=== PATIENT | female | born 1950 | race Caucasian/White ===

== ENCOUNTER 2016-10-22 11:41 | Emergency (ER) | payer MEDICARE, OTHER ==
[2016-10-22 11:51] VITALS: TEMP 97.7; BMI 30.4
[2016-10-22] MEDS ORDERED: Albuterol/Ipratropium Neb 3 ML NEB NEB ONE (12:02)
[2016-10-22 12:18] LABS: AUTOMATED BASOPHIL 0.9 % (0-2); AUTOMATED EOSINOPHIL 5.3 % (0-5); AUTOMATED LYMPH 22.6 % (17-44); AUTOMATED MONOCYTE 6.5 % (3-10); AUTOMATED NEUTROPHIL 64.7 % (45-76); MPV 7.6 fL (7.4-10.4)
[2016-10-22 12:26] LABS: ABG Draw Site Left Radial; ALLEN'S TEST PASS; BEb 6.9 (+/- 2)
[2016-10-22 12:30] LABS: PARTIAL THROMB. TIME 25.5 SEC (22-35)
[2016-10-22 12:36] LABS: BLOOD UREA NITROGEN 9 MG/DL (7-17); CALCIUM 9.5 MG/DL (8.4-10.2); CALCULATED OSMOLALITY 268 MOs/Kg (270-290); CHLORIDE 99 mEq/L (98-107); GLUCOSE 116 mg/dL (70-99); SODIUM LEVEL 139 mEq/L (137-146); TOTAL PROTEIN 7.7 G/DL (6.3-8.2)
[2016-10-22 13:27] LABS: LEUKOCYTES/URINE TRACE (NEGATIVE); NITRITE/URINE NEG (NEGATIVE); URINE OCCULT BLOOD NEG (NEG/TRACE); WBC/URINE 0-2 (0-5)
[2016-10-22] MEDS ORDERED: ONDANSETRON HCL 4 MG/2 ML VIAL IV ONE (13:28)
--- NOTE | 2016-10-22 13:28 | DIRPT ---
CLINICAL DATA: Shortness of breath, chest pain EXAM: CHEST 2 VIEW COMPARISON: CT chest 05/24/2016 FINDINGS: The lungs are hyperinflated likely secondary to COPD. There is no focal parenchymal opacity. There is no pleural effusion or pneumothorax. The heart and mediastinal contours are unremarkable. The osseous structures are unremarkable. IMPRESSION: No active cardiopulmonary disease. Electronically Signed By: Valentine Vaca On: 10/22/2016 13:26
[2016-10-22] MEDS ORDERED: METHYLPREDNISOLONE 125 MG/2 ML VIAL IV ONE (13:30)
[2016-10-22] MEDS ORDERED: HYDROmorphone 1 MG INJECTION IV ONE (13:38)
[2016-10-22] MEDS ORDERED: ALBUTEROL 6.7 GM MDI INH ONE (14:00)
--- NOTE | 2016-10-22 14:00 | EDPRACDOC ---
- General Information Chief Complaint: Chest Pain Stated Complaint: CHEST PAIN Time Seen by Provider: 10/22/16 12:06 Information Source: Patient Mode of Arrival: Car Home Medications: Home Medications Ropinirole HCl [Requip] 2 mg PO BID 10/21/15 Trazodone HCl [Desyrel] 50 mg PO QHS 10/21/15 Amoxicillin Trihydrate [Amoxicillin] 500 mg PO TID #30 tab 10/22/16 Fluoxetine HCl 20 mg PO DAILY 10/22/16 HYDROmorphone [Dilaudid] 4 mg PO .5XDAILY PRN 10/22/16 Methocarbamol 500 mg PO QID PRN 10/22/16 Ondansetron [Zofran Odt] 4 mg PO Q6H PRN #10 tab.rapdis 10/22/16 Prednisone [Deltasone, Orasone] 10 mg PO DAILY #39 tablet 10/22/16 Allergies/Adverse Reactions: Allergies Allergy/AdvReac Type Severity Reaction Status Date / Time morphine Allergy Confusion Verified 10/22/16 11:48 promethazine HCl Allergy See Verified 10/22/16 11:48 [From Phenergan] Comments - 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 Nitro SL x 2 did not help. Last stress test 2014 NEG ( per pt), and last check up with cardiology 2015 ok. Breast reduction surgery 3 weeks ago. Med hx = bronchitis/COPD Chest Pain Location: Reports: Substernal, Right Chest, Left Chest Pain Radiation: Reports: Arm (L), Arm (R) Symptoms Occur: Reports: Suddenly, At Rest Cardiac Risk Factors: Reports: Smoker (ex) Cardiac History of: Reports: Similar Pain in Past, Stress Test PE Risk Factors: Reports: Recent Trauma/Surgery. Denies: Estrogen Use Medications within 24 Hours: Reports: None, Nitro Prehospital Care: Reports: SL NTG Pain Came On: Reports: Suddenly Pain Status: Present Now Pain Description: Reports: Pressure Pain Severity: Mild Pain Worsens With: Reports: Nothing Pain Improves With: Reports: Nothing Associated Signs and Symptoms: Reports: SOB, Nausea ED Past Medical History - History Reviewed Yes Nurses notes reviewed and agree except as marked - Patient Medical History Psychological History: Reports: Depression - Social Medical History Smoking Status: Former smoker EDM Review of Systems - Review of Systems ROS Negative Except as Marked: Yes All systems reviewed and were negative except as marked Respiratory: Shortness of Breath Cardiovascular: Chest Pain - Physical Exam Constitutional: No apparent distress, Alert Oriented to: Time, Person, Place Last recorded Vital Signs: Last Vital Signs Temp 97.7 F 10/22/16 11:49 Pulse 69 10/22/16 13:16 Resp 16 10/22/16 13:16 BP 156/75 10/22/16 13:16 Pulse Ox 94 10/22/16 13:16 Oxygen Pulse Oxygen Saturation 94 O2 Device Nasal Cannula Oxygen Flow Rate 2 Fraction of Inspired Oxygen ( FIO2) - HEENT Head: Normal Eye Exam: negative: Conjunctival Injection, Scleral Icterus Oropharynx: negative: Drooling TMJ: Normal Nose: No Symptoms Reported Neck: Normal - Respiratory/Cardiovascular Respiratory: Normal - CTA Cardiovascular: Normal - GI Tenderness: Non tender - Musculoskeletal Back: Normal Extremities: Normal - Integumentary Skin: Normal - Neurologic Mood Description: Normal Thought: Coherent Perception: Normal ED Chest Pain Exam - Respiratory/Cardiovascular Respiratory: Normal - CTA Cardiovascular/Chest: Normal Radial Pulse: Normal Pedal Pulse: Normal Edema: negative: 1+, 2+, 3+, 4+, 5, 6 Chest Palpation: Normal - Action ASA given in the ED: No - Results 10/22/16 11:55 10/22/16 11:55 WBC 8.0 xk/uL (3.8-10.8) 10/22/16 11:55 RBC 4.61 xM/uL (4.20-5.40) 10/22/16 11:55 Hgb 13.6 g/dL (12.0-16.0) 10/22/16 11:55 Hct 40.8 % (36-47) 10/22/16 11:55 MCV 88 fL (81-99) 10/22/16 11:55 MCH 29.5 pg (27-32) 10/22/16 11:55 MCHC 33.4 g/dl (33-36) 10/22/16 11:55 RDW 13.2 % (11.5-14.5) 10/22/16 11:55 Plt Count 377 xk/uL (130-400) 10/22/16 11:55 MPV 7.6 fL (7.4-10.4) 10/22/16 11:55 Neut % (Auto) 64.7 % (45-76) 10/22/16 11:55 Lymph % (Auto) 22.6 % (17-44) 10/22/16 11:55 Webb % (Auto) 6.5 % (3-10) 10/22/16 11:55 Eos % (Auto) 5.3 % (0-5) H 10/22/16 11:55 Baso % (Auto) 0.9 % (0-2) 10/22/16 11:55 Absolute Neuts (auto) 5.12 xk/uL (1.7-8.2) 10/22/16 11:55 Absolute Lymphs (auto) 1.76 xk/uL (0.65-4.75) 10/22/16 11:55 PT 10.7 SEC (9.2-11.2) 10/22/16 11:55 INR 1.0 10/22/16 11:55 APTT 25.5 SEC (22-35) 10/22/16 11:55 D-Dimer Quant (PE/DVT) 1028 ng/mL (<500) H 10/22/16 11:55 Puncture Site Left radial 10/22/16 12:20 pH 7.430 pH UNITS (7.35-7.45) 10/22/16 12:20 pCO2 49.0 mmHg (35-45) H 10/22/16 12:20 pO2 58.0 mmHg (80-100) L 10/22/16 12:20 HCO3 32.5 MMOL/L (22-26) H 10/22/16 12:20 Total CO2 34.0 MMOL/L (23-27) H 10/22/16 12:20 Base Excess 6.9 (+/- 2) H 10/22/16 12:20 FiO2 % 21% 10/22/16 12:20 Specimen Drawn By Kasgl 10/22/16 12:20 Sodium 139 mEq/L (137-146) 10/22/16 11:55 Potassium 4.3 mEq/L (3.5-5.1) 10/22/16 11:55 Chloride 99 mEq/L (98-107) 10/22/16 11:55 Carbon Dioxide 30 mMOL/L (22-33) 10/22/16 11:55 Anion Gap 14 mEq/L (8-16) 10/22/16 11:55 BUN 9 MG/DL (7-17) 10/22/16 11:55 Creatinine 0.60 MG/DL (0.52-1.04) 10/22/16 11:55 Estimated GFR (MDRD) > 60 mL/min (>=60) 10/22/16 11:55 Glucose 116 mg/dL (70-99) H 10/22/16 11:55 Calculated Osmolality 268 MOs/Kg (270-290) L 10/22/16 11:55 Calcium 9.5 MG/DL (8.4-10.2) 10/22/16 11:55 Total Bilirubin 0.6 MG/DL (0.2-1.3) 10/22/16 11:55 AST 26 IU/L (14-36) 10/22/16 11:55 ALT 27 IU/L (9-52) 10/22/16 11:55 Alkaline Phosphatase 102 IU/L (55-165) 10/22/16 11:55 Troponin I < 0.01 ng/mL (<.04) 10/22/16 11:55 Total Protein 7.7 G/DL (6.3-8.2) 10/22/16 11:55 Albumin 4.2 G/DL (3.5-5.0) 10/22/16 11:55 Lipase 85 U/L (23-300) 10/22/16 11:55 Urine Color Yellow 10/22/16 13:12 Urine Clarity Clear 10/22/16 13:12 Urine pH 6.0 (5.0-8.0) 10/22/16 13:12 Ur Specific [place] 1.020 (1.003-1.035) 10/22/16 13:12 Urine Protein 1+ (NEG/TRACE) H 10/22/16 13:12 Urine Glucose (UA) Neg (NEGATIVE) 10/22/16 13:12 Urine Ketones Neg (NEGATIVE) 10/22/16 13:12 Urine Occult Blood Neg (NEG/TRACE) 10/22/16 13:12 Urine Nitrite Neg (NEGATIVE) 10/22/16 13:12 Urine Bilirubin Neg (NEGATIVE) 10/22/16 13:12 Urine Urobilinogen <2.0 MG/DL (0-1) 10/22/16 13:12 Ur Leukocyte Esterase Trace (NEGATIVE) H 10/22/16 13:12 Urine RBC 2-5 (0-5) 10/22/16 13:12 Urine WBC 0-2 (0-5) 10/22/16 13:12 Ur Epithelial Cells 2+ 10/22/16 13:12 Urine Bacteria Few (NEG/FEW) 10/22/16 13:12 Hyaline Casts 5-10 (0-2) H 10/22/16 13:12 Urine Mucus Mod (NEG/OCC) H 10/22/16 13:12 Lab Results 10/22/16 10/22/16 10/22/16 13:12 12:20 11:55 WBC RBC Hgb Hct MCV MCH MCHC RDW Plt Count MPV Neut % (Auto) Lymph % (Auto) Webb % (Auto) Eos % (Auto) Baso % (Auto) Absolute Neuts (auto) Absolute Lymphs (auto) PT INR APTT D-Dimer Quant (PE/DVT) 1028 H Puncture Site Left radial pH 7.430 pCO2 49.0 H pO2 58.0 L HCO3 32.5 H Total CO2 34.0 H Base Excess 6.9 H FiO2 % 21% Specimen Drawn By Kasgl Sodium Potassium Chloride Carbon Dioxide Anion Gap BUN Creatinine Estimated GFR (MDRD) Glucose Calculated Osmolality Calcium Total Bilirubin AST ALT Alkaline Phosphatase Troponin I Total Protein Albumin Lipase Urine Color Yellow Urine Clarity Clear Urine pH 6.0 Ur Specific [place] 1.020 Urine Protein 1+ H Urine Glucose (UA) Neg Urine Ketones Neg Urine Occult Blood Neg Urine Nitrite Neg Urine Bilirubin Neg Urine Urobilinogen <2.0 Ur Leukocyte Esterase Trace H Urine RBC 2-5 Urine WBC 0-2 Ur Epithelial Cells 2+ Urine Bacteria Few Hyaline Casts 5-10 H Urine Mucus Mod H 10/22/16 10/22/16 10/22/16 11:55 11:55 11:55 WBC 8.0 RBC 4.61 Hgb 13.6 Hct 40.8 MCV 88 MCH 29.5 MCHC 33.4 RDW 13.2 Plt Count 377 MPV 7.6 Neut % (Auto) 64.7 Lymph % (Auto) 22.6 Webb % (Auto) 6.5 Eos % (Auto) 5.3 H Baso % (Auto) 0.9 Absolute Neuts (auto) 5.12 Absolute Lymphs (auto) 1.76 PT 10.7 INR 1.0 APTT 25.5 D-Dimer Quant (PE/DVT) Puncture Site pH pCO2 pO2 HCO3 Total CO2 Base Excess FiO2 % Specimen Drawn By Sodium 139 Potassium 4.3 Chloride 99 Carbon Dioxide 30 Anion Gap 14 BUN 9 Creatinine 0.60 Estimated GFR (MDRD) > 60 Glucose 116 H Calculated Osmolality 268 L Calcium 9.5 Total Bilirubin 0.6 AST 26 ALT 27 Alkaline Phosphatase 102 Troponin I < 0.01 Total Protein 7.7 Albumin 4.2 Lipase 85 Urine Color Urine Clarity Urine pH Ur Specific [place] Urine Protein Urine Glucose (UA) Urine Ketones Urine Occult Blood Urine Nitrite Urine Bilirubin Urine Urobilinogen Ur Leukocyte Esterase Urine RBC Urine WBC Ur Epithelial Cells Urine Bacteria Hyaline Casts Urine Mucus Laboratory Results - last 24 hr 10/22/16 10/22/16 10/22/16 11:55 11:55 11:55 WBC 8.0 RBC 4.61 Hgb 13.6 Hct 40.8 MCV 88 MCH 29.5 MCHC 33.4 RDW 13.2 Plt Count 377 MPV 7.6 Neut % (Auto) 64.7 Lymph % (Auto) 22.6 Webb % (Auto) 6.5 Eos % (Auto) 5.3 H Baso % (Auto) 0.9 Absolute Neuts (auto) 5.12 Absolute Lymphs (auto) 1.76 PT 10.7 INR 1.0 APTT 25.5 D-Dimer Quant (PE/DVT) Puncture Site pH pCO2 pO2 HCO3 Total CO2 Base Excess FiO2 % Specimen Drawn By Sodium 139 Potassium 4.3 Chloride 99 Carbon Dioxide 30 Anion Gap 14 BUN 9 Creatinine 0.60 Estimated GFR (MDRD) > 60 Glucose 116 H Calculated Osmolality 268 L Calcium 9.5 Total Bilirubin 0.6 AST 26 ALT 27 Alkaline Phosphatase 102 Troponin I < 0.01 Total Protein 7.7 Albumin 4.2 Lipase 85 Urine Color Urine Clarity Urine pH Ur Specific [place] Urine Protein Urine Glucose (UA) Urine Ketones Urine Occult Blood Urine Nitrite Urine Bilirubin Urine Urobilinogen Ur Leukocyte Esterase Urine RBC Urine WBC Ur Epithelial Cells Urine Bacteria Hyaline Casts Urine Mucus 10/22/16 10/22/16 10/22/16 11:55 12:20 13:12 WBC RBC Hgb Hct MCV MCH MCHC RDW Plt Count MPV Neut % (Auto) Lymph % (Auto) Webb % (Auto) Eos % (Auto) Baso % (Auto) Absolute Neuts (auto) Absolute Lymphs (auto) PT INR APTT D-Dimer Quant (PE/DVT) 1028 H Puncture Site Left radial pH 7.430 pCO2 49.0 H pO2 58.0 L HCO3 32.5 H Total CO2 34.0 H Base Excess 6.9 H FiO2 % 21% Specimen Drawn By Kasgl Sodium Potassium Chloride Carbon Dioxide Anion Gap BUN Creatinine Estimated GFR (MDRD) Glucose Calculated Osmolality Calcium Total Bilirubin AST ALT Alkaline Phosphatase Troponin I Total Protein Albumin Lipase Urine Color Yellow Urine Clarity Clear Urine pH 6.0 Ur Specific [place] 1.020 Urine Protein 1+ H Urine Glucose (UA) Neg Urine Ketones Neg Urine Occult Blood Neg Urine Nitrite Neg Urine Bilirubin Neg Urine Urobilinogen <2.0 Ur Leukocyte Esterase Trace H Urine RBC 2-5 Urine WBC 0-2 Ur Epithelial Cells 2+ Urine Bacteria Few Hyaline Casts 5-10 H Urine Mucus Mod H Laboratory Results 10/22/16 11:55 10/22/16 11:55 - EKG EKG #1 EKG Time: 11:58 -: Yes EKG interpreted by me Rate: bpm: 75 Rhythm: Other (sinus arrhythmia) Block: LBBB ST: Normal Comparison: 10/21/15 (no sig diference) - Diagnostic Imaging Chest Image interpreted by: Radiologist EXAM: CHEST 2 VIEW COMPARISON: CT chest 05/24/2016 FINDINGS: The lungs are hyperinflated likely secondary to COPD. There is no focal parenchymal opacity. There is no pleural effusion or pneumothorax. The heart and mediastinal contours are unremarkable. The osseous structures are unremarkable. IMPRESSION: No active cardiopulmonary disease. Electronically Signed By: Valentine Vaca On: 10/22/2016 13:26 Decision Time to Discharge: 14:06 - Departure Disposition: Home Condition: Stable Final Diagnosis: COPD exacerbation Instructions: Chest Pain (ED), COPD (Chronic Obstructive Pulmonary Disease) (ED ) Education/Counseling Given To: Patient Education/Counseling Given Regarding: Diagnosis, Treatment, Prognosis, Follow Up Referrals: None,No Provider [Primary Care Provider] - One Week Prescriptions: New Prednisone [Deltasone, Orasone] 10 mg PO DAILY #39 tablet Amoxicillin Trihydrate [Amoxicillin] 500 mg PO TID #30 tab Ondansetron [Zofran Odt] 4 mg PO Q6H PRN #10 tab.rapdis PRN Reason: Nausea/Vomiting No Action Trazodone HCl [Desyrel] 50 mg PO QHS Ropinirole HCl [Requip] 2 mg PO BID Methocarbamol 500 mg PO QID PRN PRN Reason: Muscle Spasms HYDROmorphone [Dilaudid] 4 mg PO .5XDAILY PRN PRN Reason: Pain Fluoxetine HCl 20 mg PO DAILY Additional Instructions: Follow up with primary care. Return to ED for any new or worsening symptoms.
[2016-10-22 14:44] VITALS: BP 141/71; PULSE 64
== END 2016-10-22 14:43 | disposition home or self-care (01) ==
LOC: ED 11:41
DX: J44.1 Chronic obstructive pulmonary disease with (acute) exacerbation (principal)
CPT/HCPCS: 36415; 36600; 71020; 80053; 81001; 82803; 83690; 84484; 85025; 85379; 85610; 85730; 87086; 93005; 94640; 94664; 96374; 96375; 99284; A9270; J1170; J2405; J2930; J7620; J3490